=== PATIENT | male | born 1950 | race Caucasian/White ===

== ENCOUNTER 2021-08-20 21:13 | Emergency (ER) | payer MEDICARE, OTHER ==
[~2021-08-20 21:13] MED LIST: CATAPRES0.2 MG PO; CELECOXIB200 MG PO; HYDRALAZINE HCL25 MG PO; KEFLEX500 MG PO; LOPRESSOR50 MG PO; LORTAB 5-325 M1 EACH PO; LOTENSIN20 MG PO; NORVASC 5 MG TAB5 MG PO
[2021-08-20 22:07] LABS: HEMOGLOBIN 12.3 gm/dl (14.0-17.5); RED BLOOD COUNT 4.23 M/UL (4.20-5.50); WHITE BLOOD COUNT 10.8 K/UL (4.5-11.0)
== END 2021-08-21 05:35 | disposition home or self-care (01) ==
LOC: ER1 21:13
PROVIDERS: Family Medicine; Physician Assistant
DX: I10 Essential (primary) hypertension (principal)
CPT/HCPCS: 71046; 80053; 82550; 82553; 84484; 85025; 93005; 96374; 99284